=== PATIENT | male | born 1945 | race Caucasian/White ===

== ENCOUNTER 2022-10-04 11:48 | Outpatient (CLI) | payer MEDICARE, BC, SELFPAY ==
[2022-10-04 14:07] LABS: Basophils Absolute Auto 0.01 K/uL (0.00-0.30); Basophils Percent Auto 0.1 % (0.0-3.0); Eosinophils Absolute Auto 0.08 K/uL (0.00-0.50); Eosinophils Percent Auto 1.2 % (0.0-7.0); Hematocrit 39.2 % (37.0-53.0); Hemoglobin* 13.3 gm/dL (13.5-17.5); Immature Granulocytes Abs Auto 0.01 K/uL (0.00-0.30); Immature Granulocytes Pct Auto 0.1 %; Lymphocytes Absolute Auto 1.84 K/uL (0.90-2.90); Lymphocytes Percent Auto 26.7 % (20-44); Mean Corpuscular HGB Conc 34 gm/dL (32-36); Mean Corpuscular Hemoglobin 32 pg (26-34); Mean Corpuscular Volume 94 fL (80-100); Monocytes Percent Auto 7.6 % (0.0-11.0); Neutrophils Absolute Auto 4.42 K/uL (1.7-7.0); Neutrophils Percent Auto 64.3 % (42.0-72.0); Platelet Count* 255 K/uL (140-440); RDW Coefficient of Variation % 12.4 % (11.5-15.5); Red Blood Count 4.16 m/uL (4.30-5.90); White Blood Count* 6.88 K/uL (4.50-11.00)
[2022-10-04 14:23] LABS: Slide Review Reflex No
[2022-10-04 15:05] LABS: Albumin* 4.1 g/dL (3.3-5.0); Chloride* 110 mmol/L (96-114); Potassium* 4.4 mmol/L (3.6-5.1); Sodium* 139 mmol/L (135-149)
[2022-10-04 15:08] LABS: Bilirubin Total* 0.5 mg/dL (0.1-1.5); Carbon Dioxide* 23 mmol/L (20-32); Creatinine* 1.5 mg/dL (0.5-1.5); Estimated Glomerular Filt Rate 47 ml/min
[2022-10-04 15:09] LABS: Alanine Aminotransferase* 17 U/L (4-50); Alkaline Phosphatase* 48 U/L (40-150); Aspartate Amino Transferase* 20 U/L (12-35); Blood Urea Nitrogen* 29 mg/dL (7-30); Calcium* 9.3 mg/dL (8.4-10.6); Creatine Kinase* 49 U/L (54-186); Glucose* 120 mg/dL (60-115); Total Protein* 7.4 g/dL (6.0-8.3)
[2022-10-04 15:14] LABS: C Reactive Protein* < 0.5 mg/dL (0.5-1.0)
[2022-10-04 15:22] LABS: Erythrocyte SedimentationRate* 30 mm/hr (2-15)
[2022-10-04 15:25] LABS: SARS PCR* Negative SARS-CoV-2 (Negative)
[2022-10-04 15:34] LABS: TSH With Reflex to FT4* 0.965 uIU/mL (0.270-4.200)
[2022-10-05 17:49] LABS: COVID-19 IgG Index by CIA >100.00 IV (<=0.99); COVID-19 IgG by CIA Interp Positive (Negative)
== END 2022-10-04 11:49 | disposition home or self-care (01) ==
PROVIDERS: PCP Nurse Practitioner Family; Visit Provider Nurse Practitioner Family
DX: M79.10 Myalgia, unspecified site (principal); R53.83 Other fatigue; Z20.822 Contact with and (suspected) exposure to COVID-19
CPT/HCPCS: 80053; 82550; 84443; 85025; 85651; 86140; 86769; 87635